=== PATIENT | male | born 1950 | race Caucasian/White ===

== ENCOUNTER 2017-11-15 17:40 | Inpatient (IN) | payer MEDICARE, MEDICAID ==
[~2017-11-15] VITALS: Ht 172.7 cm; Wt 64.0 kg
[2017-11-15] MEDS ORDERED: succinylcholine 20mg/ml inj IV ONE (18:22)
[2017-11-15 18:25] LABS: BASOPHILS % (AUTO) 0.1 % (0-1); EOSINOPHILS # (AUTO) 0.2 X10'3 (0-0.9); EOSINOPHILS % (AUTO) 2.3 % (0-6); HEMATOCRIT 33.5 % (42.0-52.0); HEMOGLOBIN 11.2 g/dl (14.0-17.9); LYMPHOCYTES # (AUTO) 0.9 X10'3 (1.1-4.8); LYMPHOCYTES % (AUTO) 12.4 % (21-51); MEAN CORPUSCULAR HEMOGLOBIN 27.4 PG (27.0-31.0); MEAN CORPUSCULAR HGB CONC 33.5 % (33.0-36.5); MEAN CORPUSCULAR VOLUME 81.8 FL (78-98); MEAN PLATELET VOLUME 7.2 FL (7.4-10.4); MONOCYTES # (AUTO) 0.4 X10'3 (0-0.9); MONOCYTES % (AUTO) 6.5 % (2-12); NEUTROPHILS # (AUTO) 5.4 X10'3 (1.8-7.7); NEUTROPHILS % (AUTO) 78.7 % (42-75); PLATELET COUNT 239 X10'3 (140-440); RED BLOOD COUNT 4.09 X10'6 (4.70-6.10); RED CELL DISTRIBUTION WIDTH 15.3 % (11.5-14.5); WHITE BLOOD COUNT 6.9 X10'3 (4.5-11.0)
[2017-11-15] MEDS ORDERED: nitroGLYCERIN-Tridil 50MG/D5W 250 ML IV ONE (18:35)
[2017-11-15 18:48] LABS: ALANINE AMINOTRANSFERASE 39 U/L (12-78); ALBUMIN 3.6 G/DL (3.4-5.0); ALKALINE PHOSPHATASE 116 IU/L (46-116); ANION GAP 9 (8-16); ASPARTATE AMINO TRANSFERASE 27 U/L (10-37); BILIRUBIN,TOTAL 0.4 MG/DL (0.1-1.0); BLOOD UREA NITROGEN 40 MG/DL (7-18); BUN/CREATININE RATIO 17.4 (5.4-32.0); CALCIUM 8.5 MG/DL (8.5-10.1); CHLORIDE 109 MMOL/L (99-107); GLUCOSE 120 MG/DL (70-104); MAGNESIUM 2.2 MG/DL (1.5-2.4); POTASSIUM 4.5 MMOL/L (3.5-5.1); SODIUM 143 MMOL/L (135-145); TOTAL CARBON DIOXIDE 25.1 MMOL/L (24-32); TOTAL PROTEIN 7.2 G/DL (6.4-8.2); eGFR 28 ML/MIN
[2017-11-15] MEDS ORDERED: furosemide 10 MG/1 ML 10ml inj IV ONE (19:00)
[2017-11-15] MEDS ORDERED: normal saline 1000ML IV soln IVB ONE (19:05)
[2017-11-15] MEDS ORDERED: ASPI81TA52 PO (19:16)
[2017-11-15 19:24] LABS: D-DIMER 1.89 MG/L FEU (0-0.50)
[2017-11-15] MEDS ORDERED: metoprolol tartrate 1mg/ml inj IV PRN (19:35)
[2017-11-15] MEDS ORDERED: bisacodyl 10mg suppository rectal RC PRN (19:35)
[2017-11-15] MEDS ORDERED: acetaminophen 650mg rectal suppository RC PRN (19:35)
[2017-11-15] MEDS ORDERED: ondansetron/PF 4mg/2ml inj IV PRN (19:35)
[2017-11-15] MEDS ORDERED: mag hydrox/Alum hydrox/simeth 30ml oral suspension PO PRN (19:35)
[2017-11-15] MEDS ORDERED: HYDROmorphone 1 mg/ml syringe IV PRN ×2 (19:35)
[2017-11-15] MEDS ORDERED: HYDROcodone/acetaminophen 5mg/325mg tablet PO PRN (19:35)
[2017-11-15] MEDS ORDERED: diphenhydrAMINE 50 mg/ml inj IV PRN (19:35)
[2017-11-15] MEDS ORDERED: HYDROcodone/acetaminophen 10/325mg tab PO PRN (19:35)
[2017-11-15] MEDS ORDERED: magnesium hydroxide 30ml (MOM) UD suspension PO PRN (19:35)
[2017-11-15] MEDS ORDERED: diphenhydrAMINE 25mg capsule PO PRN (19:35)
[2017-11-15] MEDS ORDERED: acetaminophen 325mg tablet PO PRN ×2 (19:35)
[2017-11-15] MEDS ORDERED: metoclopramide 5 mg/ml inj IV PRN (19:35)
[2017-11-15] MEDS ORDERED: morphine 2 MG/ML inj. syringe IV PRN (19:35)
[2017-11-15 20:09] LABS: PARTIAL THROMBOPLASTIN TIME 29 SECONDS (22-32); PROTHROMBIN TIME 10.8 SECONDS (9.0-12.0)
[2017-11-15 20:16] LABS: HEMOGLOBIN A1C 5.7 % (4.5-6.2)
[2017-11-15] MEDS: metoprolol tartrate 25mg tablet PO SCH (20:21)
[2017-11-15] MEDS: docusate sod 100mg capsule PO SCH (20:21)
[2017-11-15] MEDS: nicotine 21mg patch - 24 hr TD SCH (20:21)
[2017-11-15] MEDS: enoxaparin 60mg/0.6ml syringe SUBCUT SCH (20:22)
[2017-11-15 20:24] LABS: CREATINE KINASE 110 U/L (39-308); LIPASE 139 U/L (73-393); PHOSPHORUS 4.3 MG/DL (2.3-4.5)
[2017-11-15] MEDS ORDERED: enoxaparin 60mg/0.6ml syringe SUBCUT ONE (20:40)
[2017-11-15 21:13] LABS: CLARITY,URINE CLEAR (Clear); COLOR,URINE STRAW (Yellow); GLUCOSE, URINE NEGATIVE (Neg); KETONES,URINE NEGATIVE (Neg); LEUKOCYTE ESTERASE ,URINE NEGATIVE (Neg); NITRITES, URINE NEGATIVE (Neg); OCCULT BLOOD,URINE NEGATIVE (Neg); PROTEIN,URINE NEGATIVE (Neg); UROBILINOGEN,URINE 0.2 E.U/dL (0.2-1.0)
[2017-11-15 21:15] LABS: URINE AMPHETAMINE SCREEN POSITIVE (Neg); URINE BARBITUATE SCREEN NEGATIVE (Neg); URINE BENZODIAZEPINES SCREEN NEGATIVE (Neg); URINE CANNABINOID SCREEN NEGATIVE (Neg); URINE COCAINE SCREEN NEGATIVE (Neg); URINE METHADONE SCREEN NEGATIVE (Neg); URINE OPIATE SCREEN NEGATIVE (Neg); URINE PHENCYCLIDINE SCREEN NEGATIVE (Neg)
[2017-11-15 21:21] LABS: UA COLLECTION TYPE CLN CATCH MIDSTREAM
[2017-11-16] VITALS (15 sets, daily range): BP systolic 94–163; BP diastolic 50–108
[2017-11-16] MEDS: temazepam 15mg capsule PO PRN (02:54)
[2017-11-16 07:03] LABS: BASOPHILS % (AUTO) 0.3 % (0-1); EOSINOPHILS # (AUTO) 0.2 X10'3 (0-0.9); EOSINOPHILS % (AUTO) 2.8 % (0-6); HEMATOCRIT 28.1 % (42.0-52.0); HEMOGLOBIN 9.5 g/dl (14.0-17.9); LYMPHOCYTES # (AUTO) 1.1 X10'3 (1.1-4.8); LYMPHOCYTES % (AUTO) 16.1 % (21-51); MEAN CORPUSCULAR HEMOGLOBIN 27.3 PG (27.0-31.0); MEAN CORPUSCULAR HGB CONC 33.9 % (33.0-36.5); MEAN CORPUSCULAR VOLUME 80.5 FL (78-98); MEAN PLATELET VOLUME 7.4 FL (7.4-10.4); MONOCYTES # (AUTO) 0.7 X10'3 (0-0.9); MONOCYTES % (AUTO) 9.7 % (2-12); NEUTROPHILS # (AUTO) 4.8 X10'3 (1.8-7.7); NEUTROPHILS % (AUTO) 71.1 % (42-75); PLATELET COUNT 216 X10'3 (140-440); RED BLOOD COUNT 3.49 X10'6 (4.70-6.10); RED CELL DISTRIBUTION WIDTH 15.4 % (11.5-14.5); WHITE BLOOD COUNT 6.7 X10'3 (4.5-11.0)
[2017-11-16] MEDS: docusate sod 100mg capsule PO SCH ×2 (07:16→19:33)
[2017-11-16] MEDS: aspirin 81mg tablet.DR PO SCH (07:17)
[2017-11-16] MEDS: metoprolol tartrate 25mg tablet PO SCH ×2 (07:17→19:33)
[2017-11-16] MEDS: enoxaparin 60mg/0.6ml syringe SUBCUT SCH ×2 (07:18→19:33)
[2017-11-16] MEDS: nicotine 21mg patch - 24 hr TD SCH (07:22)
[2017-11-16 07:25] LABS: ALBUMIN 3.1 G/DL (3.4-5.0); ANION GAP 10 (8-16); ASPARTATE AMINO TRANSFERASE 22 U/L (10-37); BILIRUBIN,TOTAL 0.4 MG/DL (0.1-1.0); BLOOD UREA NITROGEN 47 MG/DL (7-18); BUN/CREATININE RATIO 18.8 (5.4-32.0); CALCIUM 8.2 MG/DL (8.5-10.1); CHLORIDE 110 MMOL/L (99-107); GLUCOSE 108 MG/DL (70-104); POTASSIUM 4.4 MMOL/L (3.5-5.1); SODIUM 143 MMOL/L (135-145); TOTAL CARBON DIOXIDE 22.8 MMOL/L (24-32); TOTAL PROTEIN 6.2 G/DL (6.4-8.2); eGFR 26 ML/MIN
[2017-11-16 07:26] LABS: ALANINE AMINOTRANSFERASE 35 U/L (12-78); ALKALINE PHOSPHATASE 96 IU/L (46-116); CHOL/HDL RATIO 3.7 (0.00-4.99); CHOLESTEROL 131 MG/DL (0-200); HDL CHOLESTEROL 35 MG/DL (35-60); LDL CHOLESTEROL 85 MG/DL (50-100); TRIGLYCERIDES 86 MG/DL (20-135)
[2017-11-16] MEDS ORDERED: nitroGLYCERIN 0.4mg/hour patch TD SCH (08:00)
[2017-11-16] MEDS ORDERED: pneumococcal 23-VAL P-sac vacc 25 mcg/0.5ml vial IMVAC ONE (10:00)
[2017-11-16] MEDS ORDERED: FLU VACC QS2017-18 36MOS UP/PF 60 MCG/0.5 ML SYRINGE IMVAC ONE (10:00)
[2017-11-16] MEDS ORDERED: hydrALAZINE 20mg/ml inj. IV PRN (11:50)
[2017-11-17] VITALS (7 sets, daily range): BP systolic 101–173; BP diastolic 46–117
[2017-11-17] MEDS: temazepam 15mg capsule PO PRN ×2 (00:42→23:11)
[2017-11-17 06:29] LABS: BASOPHILS % (AUTO) 0.4 % (0-1); EOSINOPHILS # (AUTO) 0.2 X10'3 (0-0.9); EOSINOPHILS % (AUTO) 2.5 % (0-6); HEMATOCRIT 34.4 % (42.0-52.0); HEMOGLOBIN 11.2 g/dl (14.0-17.9); LYMPHOCYTES % (AUTO) 26.3 % (21-51); MEAN CORPUSCULAR HGB CONC 32.5 % (33.0-36.5); MEAN CORPUSCULAR VOLUME 83.2 FL (78-98); MEAN PLATELET VOLUME 8.1 FL (7.4-10.4); MONOCYTES # (AUTO) 0.7 X10'3 (0-0.9); MONOCYTES % (AUTO) 9.5 % (2-12); NEUTROPHILS # (AUTO) 4.7 X10'3 (1.8-7.7); NEUTROPHILS % (AUTO) 61.3 % (42-75); PLATELET COUNT 240 X10'3 (140-440); RED BLOOD COUNT 4.14 X10'6 (4.70-6.10); RED CELL DISTRIBUTION WIDTH 15.8 % (11.5-14.5); WHITE BLOOD COUNT 7.7 X10'3 (4.5-11.0)
[2017-11-17 07:06] LABS: ALANINE AMINOTRANSFERASE 41 U/L (12-78); ALBUMIN 3.1 G/DL (3.4-5.0); ALBUMIN/GLOBULIN RATIO 0.9 (1.1-1.5); ALKALINE PHOSPHATASE 110 IU/L (46-116); ANION GAP 13 (8-16); ASPARTATE AMINO TRANSFERASE 31 U/L (10-37); BILIRUBIN,TOTAL 0.6 MG/DL (0.1-1.0); BLOOD UREA NITROGEN 55 MG/DL (7-18); BUN/CREATININE RATIO 19.6 (5.4-32.0); CALCIUM 8.4 MG/DL (8.5-10.1); CHLORIDE 107 MMOL/L (99-107); GLUCOSE 90 MG/DL (70-104); POTASSIUM 4.7 MMOL/L (3.5-5.1); SODIUM 142 MMOL/L (135-145); TOTAL CARBON DIOXIDE 21.9 MMOL/L (24-32); TOTAL PROTEIN 6.6 G/DL (6.4-8.2); eGFR 23 ML/MIN
[2017-11-17] MEDS: metoprolol tartrate 25mg tablet PO SCH ×2 (07:43→19:43)
[2017-11-17] MEDS: docusate sod 100mg capsule PO SCH ×2 (07:43→19:43)
[2017-11-17] MEDS: aspirin 81mg tablet.DR PO SCH (07:44)
[2017-11-17] MEDS: enoxaparin 60mg/0.6ml syringe SUBCUT SCH ×2 (07:44→19:43)
[2017-11-17] MEDS: nicotine 21mg patch - 24 hr TD SCH (11:16)
[2017-11-17] MEDS: furosemide 20 MG/2 ML vial IV SCH (19:43)
[2017-11-18 02:00] VITALS: BP 144/98
[2017-11-18 06:00] VITALS: BP 169/108
[2017-11-18 06:35] LABS: BASOPHILS % (AUTO) 0.3 % (0-1); EOSINOPHILS # (AUTO) 0.3 X10'3 (0-0.9); EOSINOPHILS % (AUTO) 2.8 % (0-6); HEMATOCRIT 34.3 % (42.0-52.0); HEMOGLOBIN 11.7 g/dl (14.0-17.9); LYMPHOCYTES # (AUTO) 2.1 X10'3 (1.1-4.8); LYMPHOCYTES % (AUTO) 23.7 % (21-51); MEAN CORPUSCULAR HEMOGLOBIN 27.6 PG (27.0-31.0); MEAN CORPUSCULAR VOLUME 81.1 FL (78-98); MEAN PLATELET VOLUME 7.9 FL (7.4-10.4); MONOCYTES # (AUTO) 0.8 X10'3 (0-0.9); MONOCYTES % (AUTO) 8.6 % (2-12); NEUTROPHILS # (AUTO) 5.7 X10'3 (1.8-7.7); NEUTROPHILS % (AUTO) 64.6 % (42-75); PLATELET COUNT 287 X10'3 (140-440); RED BLOOD COUNT 4.23 X10'6 (4.70-6.10); RED CELL DISTRIBUTION WIDTH 15.8 % (11.5-14.5); WHITE BLOOD COUNT 8.9 X10'3 (4.5-11.0)
[2017-11-18 07:17] LABS: ALANINE AMINOTRANSFERASE 43 U/L (12-78); ALBUMIN 3.2 G/DL (3.4-5.0); ALBUMIN/GLOBULIN RATIO 0.9 (1.1-1.5); ALKALINE PHOSPHATASE 110 IU/L (46-116); ANION GAP 15 (8-16); ASPARTATE AMINO TRANSFERASE 29 U/L (10-37); BILIRUBIN,TOTAL 0.5 MG/DL (0.1-1.0); BLOOD UREA NITROGEN 57 MG/DL (7-18); BUN/CREATININE RATIO 21.1 (5.4-32.0); CALCIUM 8.4 MG/DL (8.5-10.1); CHLORIDE 105 MMOL/L (99-107); GLUCOSE 99 MG/DL (70-104); POTASSIUM 4.4 MMOL/L (3.5-5.1); SODIUM 140 MMOL/L (135-145); TOTAL CARBON DIOXIDE 20.5 MMOL/L (24-32); TOTAL PROTEIN 6.8 G/DL (6.4-8.2); eGFR 24 ML/MIN
[2017-11-18] MEDS: furosemide 20 MG/2 ML vial IV SCH ×2 (08:15→20:32)
[2017-11-18] MEDS: enoxaparin 60mg/0.6ml syringe SUBCUT SCH ×2 (08:16→20:45)
[2017-11-18] MEDS: metoprolol tartrate 25mg tablet PO SCH ×2 (08:16→20:44)
[2017-11-18] MEDS: docusate sod 100mg capsule PO SCH ×2 (08:16→20:45)
[2017-11-18] MEDS: aspirin 81mg tablet.DR PO SCH (08:16)
[2017-11-18] MEDS: nicotine 21mg patch - 24 hr TD SCH (08:18)
[2017-11-18 11:00] VITALS: BP 160/89
[2017-11-18 15:00] VITALS: BP 144/88
[2017-11-18] MEDS: lisinopril 10 MG tablet PO SCH (17:15)
[2017-11-18 18:00] VITALS: BP 150/76
[2017-11-18 22:00] VITALS: BP 149/83
[2017-11-18] MEDS: temazepam 15mg capsule PO PRN (23:13)
[2017-11-19 02:00] VITALS: BP 146/83
[2017-11-19 06:00] VITALS: BP 134/49
[2017-11-19 07:10] LABS: BASOPHILS % (AUTO) 0.3 % (0-1); EOSINOPHILS # (AUTO) 0.3 X10'3 (0-0.9); EOSINOPHILS % (AUTO) 3.1 % (0-6); HEMATOCRIT 31.6 % (42.0-52.0); HEMOGLOBIN 10.7 g/dl (14.0-17.9); LYMPHOCYTES # (AUTO) 1.3 X10'3 (1.1-4.8); LYMPHOCYTES % (AUTO) 16.1 % (21-51); MEAN CORPUSCULAR HEMOGLOBIN 27.5 PG (27.0-31.0); MEAN CORPUSCULAR HGB CONC 33.9 % (33.0-36.5); MEAN CORPUSCULAR VOLUME 80.9 FL (78-98); MEAN PLATELET VOLUME 7.8 FL (7.4-10.4); MONOCYTES # (AUTO) 0.7 X10'3 (0-0.9); MONOCYTES % (AUTO) 8.7 % (2-12); NEUTROPHILS # (AUTO) 5.8 X10'3 (1.8-7.7); NEUTROPHILS % (AUTO) 71.8 % (42-75); PLATELET COUNT 227 X10'3 (140-440); RED BLOOD COUNT 3.91 X10'6 (4.70-6.10); RED CELL DISTRIBUTION WIDTH 15.3 % (11.5-14.5); WHITE BLOOD COUNT 8.1 X10'3 (4.5-11.0)
[2017-11-19 07:16] VITALS: BP 134/49
[2017-11-19 07:47] LABS: ALANINE AMINOTRANSFERASE 37 U/L (12-78); ALBUMIN/GLOBULIN RATIO 0.9 (1.1-1.5); ALKALINE PHOSPHATASE 96 IU/L (46-116); ANION GAP 12 (8-16); ASPARTATE AMINO TRANSFERASE 20 U/L (10-37); BILIRUBIN,TOTAL 0.5 MG/DL (0.1-1.0); BLOOD UREA NITROGEN 52 MG/DL (7-18); BUN/CREATININE RATIO 22.6 (5.4-32.0); CALCIUM 8.2 MG/DL (8.5-10.1); CHLORIDE 107 MMOL/L (99-107); GLUCOSE 84 MG/DL (70-104); POTASSIUM 3.9 MMOL/L (3.5-5.1); SODIUM 142 MMOL/L (135-145); TOTAL CARBON DIOXIDE 23.4 MMOL/L (24-32); TOTAL PROTEIN 6.4 G/DL (6.4-8.2); eGFR 28 ML/MIN
[2017-11-19] MEDS: furosemide 20 MG/2 ML vial IV SCH (08:22)
[2017-11-19] MEDS: nicotine 21mg patch - 24 hr TD SCH (08:23)
[2017-11-19] MEDS: aspirin 81mg tablet.DR PO SCH (08:23)
[2017-11-19] MEDS: docusate sod 100mg capsule PO SCH (08:23)
[2017-11-19] MEDS: enoxaparin 60mg/0.6ml syringe SUBCUT SCH (08:23)
[2017-11-19] MEDS: lisinopril 10 MG tablet PO SCH (08:23)
[2017-11-19] MEDS: metoprolol tartrate 25mg tablet PO SCH (08:23)
[2017-11-19 10:00] LABS: INR 1.1 INR; PROTHROMBIN TIME 11.7 SECONDS (9.0-12.0)
[2017-11-19 12:23] VITALS: BP 143/82
[2017-11-19] MEDS ORDERED: LISI10TA4 PO (13:20)
[2017-11-19] MEDS ORDERED: METO25TA6 PO (13:20)
[2017-11-19] MEDS ORDERED: APIX5TAB3 PO (13:20)
[2017-11-19] MEDS ORDERED: FURO-150 PO (13:22)
[2017-11-19 16:42] VITALS: BP 157/79
[2017-11-19] MEDS ORDERED: FLUT1DIS4 INH (18:39)
[2017-11-19] MEDS ORDERED: ALBU8HFA PO (18:39)
[2017-11-19] MEDS ORDERED: enoxaparin 30mg/0.3ml syringe SUBCUT SCH (20:00)
== END 2017-11-19 17:15 | disposition home or self-care (01) | DRG 896 ==
LOC: ER 17:40 → ED HOLD 19:32 → EDBEDREQ 23:01 → PCU 3S 11-16 02:10
PROVIDERS: ADMIT Family Medicine; ATTEND Internal Medicine
PROC: CB221ZZ Tomographic (Tomo) Nuclear Medicine Imaging of Lungs and Bronchi using Technetium 99m (Tc-99m) (ICD-10-PCS; principal; 2017-11-16)
DX: F15.129 Other stimulant abuse with intoxication, unspecified (principal); I50.43 Acute on chronic combined systolic (congestive) and diastolic (congestive) heart failure; N17.9 Acute kidney failure, unspecified; I16.1 Hypertensive emergency; I42.9 Cardiomyopathy, unspecified; J44.1 Chronic obstructive pulmonary disease with (acute) exacerbation; I13.0 Hypertensive heart and chronic kidney disease with heart failure and stage 1 through stage 4 chronic kidney disease, or unspecified chronic kidney disease; I27.20 Pulmonary hypertension, unspecified; N18.9 Chronic kidney disease, unspecified; F17.210 Nicotine dependence, cigarettes, uncomplicated; Z79.01 Long term (current) use of anticoagulants; Z79.82 Long term (current) use of aspirin; Z79.899 Other long term (current) drug therapy
CPT/HCPCS: 36415; 71045; 76775; 78582; 80053; 80061; 80305; 81003; 82550; 83036; 83605; 83690; 83735; 83880; 84100; 84443; 84484; 85025; 85379; 85610; 85730; 87040; 87070; 90732; 93005; 93306; 93970; 96374; 96375; 99285; A9539; A9540; J0330; J1650; J1940; J2270; J2405; J3490; J7030; Q2037

== ENCOUNTER 2018-08-17 16:42 | Emergency (ER) | payer MEDICARE, OTHER ==
[~2018-08-17] VITALS: Ht 170.2 cm; Wt 68.0 kg
[~2018-08-17 16:42] MED LIST: APIX5TAB3 PO; ASPI81TA52 PO; FLUT1DIS4 INH; FURO-150 PO; LISI10TA4 PO; METO25TA6 PO
[2018-08-17 16:46] VITALS: BP 155/72
[2018-08-17] MEDS ORDERED: HYDR-4070 PO (17:37)
[2018-08-17] MEDS ORDERED: METO50TA17 PO (17:37)
[2018-08-17] MEDS ORDERED: FURO-149 PO (17:37)
== END 2018-08-17 17:48 | disposition home or self-care (01) ==
LOC: ER 16:43
DX: I10 Essential (primary) hypertension (principal); Z60.2 Problems related to living alone; Z79.01 Long term (current) use of anticoagulants; Z79.899 Other long term (current) drug therapy
CPT/HCPCS: 99283

== ENCOUNTER 2019-05-20 20:02 | Emergency (ER) | payer MEDICAID, MEDICARE ==
[~2019-05-20 20:02] MED LIST changes: +FURO-149 PO; +HYDR-4070 PO; +METO50TA17 PO
[2019-05-20 20:52] LABS: BASOPHILS % (AUTO) 0.5 % (0-1); EOSINOPHILS # (AUTO) 0.1 X10'3 (0-0.9); EOSINOPHILS % (AUTO) 1.3 % (0-6); HEMATOCRIT 34.7 % (42.0-52.0); HEMOGLOBIN 11.6 g/dl (14.0-17.9); LYMPHOCYTES # (AUTO) 1.1 X10'3 (1.1-4.8); LYMPHOCYTES % (AUTO) 10.1 % (21-51); MEAN CORPUSCULAR HEMOGLOBIN 26.9 PG (27.0-31.0); MEAN CORPUSCULAR HGB CONC 33.3 g/dL (33.0-36.5); MEAN CORPUSCULAR VOLUME 80.8 FL (78-98); MEAN PLATELET VOLUME 7.4 FL (7.4-10.4); MONOCYTES # (AUTO) 1.1 X10'3 (0-0.9); MONOCYTES % (AUTO) 10.2 % (2-12); NEUTROPHILS # (AUTO) 8.2 X10'3 (1.8-7.7); NEUTROPHILS % (AUTO) 77.9 % (42-75); PLATELET COUNT 227 X10'3 (140-440); WHITE BLOOD COUNT 10.5 X10'3 (4.5-11.0)
[2019-05-20 21:06] LABS: ALBUMIN 3.1 G/DL (3.4-5.0); ANION GAP 11 (8-16); BLOOD UREA NITROGEN 46 MG/DL (7-18); BUN/CREATININE RATIO 18.5 (5.4-32.0); CALCIUM 8.5 MG/DL (8.5-10.1); CHLORIDE 106 MMOL/L (99-107); CREATININE 2.48 MG/DL (0.60-1.10); GLUCOSE 90 MG/DL (70-104); POTASSIUM 3.5 MMOL/L (3.5-5.1); SODIUM 140 MMOL/L (135-145); TOTAL CARBON DIOXIDE 22.7 MMOL/L (24-32); eGFR 26 ML/MIN
--- NOTE | 2019-05-20 21:17 | NUR ---
Martha Roa, friend: [phone]; will provide dc transporation this visit.
[2019-05-20 21:21] LABS: ALANINE AMINOTRANSFERASE 34 U/L (12-78); ALBUMIN/GLOBULIN RATIO 0.9 (1.1-1.5); ALKALINE PHOSPHATASE 63 IU/L (46-116); ASPARTATE AMINO TRANSFERASE 22 U/L (10-37); BILIRUBIN,TOTAL 0.6 MG/DL (0.1-1.0); TOTAL PROTEIN 6.7 G/DL (6.4-8.2)
[2019-05-20 21:36] VITALS: BP 141/65
[2019-05-20] MEDS ORDERED: CEPH500C5 PO (23:21)
== END 2019-05-20 23:32 | disposition home or self-care (01) ==
LOC: ER 20:03
DX: R60.0 Localized edema (principal); L03.116 Cellulitis of left lower limb; I25.10 Atherosclerotic heart disease of native coronary artery without angina pectoris; I13.0 Hypertensive heart and chronic kidney disease with heart failure and stage 1 through stage 4 chronic kidney disease, or unspecified chronic kidney disease; N18.9 Chronic kidney disease, unspecified; I50.9 Heart failure, unspecified; F15.90 Other stimulant use, unspecified, uncomplicated; Z87.891 Personal history of nicotine dependence; Z79.82 Long term (current) use of aspirin; Z79.899 Other long term (current) drug therapy
CPT/HCPCS: 36415; 80053; 84484; 85025; 93005; 93971; 99284